=== PATIENT | female | born 1950 | race Caucasian/White ===

== ENCOUNTER 2018-05-16 05:35 | Inpatient (IN) ==
[2018-05-16] MEDS ORDERED: 0.9 % Sodium Chloride 1,000 ML IVC ONE (06:24)
[2018-05-16] MEDS ORDERED: Ondansetron 4 MG/2 ML VIAL IVP ONE (06:24)
--- NOTE | 2018-05-16 06:29 | Emergency Department Note ---
Disposition Clinical Impression: Choledocholithiasis, Elevated liver enzymes Disposition: Admitted As Inpatient Condition: Good Referrals: NONE,PCP [Non-Partnered Physician] - Forms: ED Satisfaction Letter, Work/School Release Time of Disposition: 11:45 Abdominal Pain HPI - General Chief Complaint: ED Abdominal Pain Stated Complaint: abd pain/NVD Time Seen by Provider: 05/16/18 05:57 Source: patient Mode of arrival: private vehicle Limitations: no limitations Nursing Notes Reviewed: Yes Vital Signs Reviewed: Yes - History of Present Illness HPI Narrative: Neda is a pleasant 67-year-old female with a past medical history of type 1 diabetes. She presents the emergency room with a chief complaint of abdominal pain on and off for the past several months. She notes in the last 4 days that she has had increased vomiting. Patient states that she is also having diarrhea but this is normal for her. Gallbladder was removed in January 2016 Patient states that she is also having abdominal pain starting in the right upper quadrant with radiation across to the left upper quadrant. She states that the vomitus looks like bile. She denies blood or coffee grounds in the vomit or diarrhea. Patient states that her temperature was 100.1 at triage but denies having fevers other than this. She denies chest pain or rash note that she has has slight shortness of breath with movement. She is unsure if anything makes the vomiting or abdominal pain better or worse but states that at rest she feels better. No problems with sugar changes recently no problems with injection site problems. She is otherwise healthy. is at bedside and also provides information into history of patient's illness. Pt Subjective Complaint: abdominal pain Onset (ago): week(s) Consistency: intermittent Location: RUQ Pain Severity: moderate Pain Scale: 5 Quality: aching Radiation: LUQ - Related Data Home Medications Medication Instructions Recorded Confirmed Aspirin Enteric Coated [Aspirin EC] 81 mg PO QPM 02/19/15 02/19/15 Atorvastatin [Lipitor] 60 mg PO QPM 02/19/15 02/19/15 HYDROcodone/Acet 5/325 mg [[place] 1 tab PO Q8H PRN 02/19/15 02/19/15 5-325 mg] Insulin LISPRO [HumaLOG] 0 units SQ AD 02/19/15 02/19/15 Levothyroxine [Synthroid] 75 mcg PO QAM 02/19/15 02/19/15 Lisinopril-HCTZ 20-12.5 [Prinzide 1 each PO QAM 02/19/15 02/19/15 20-12.5] Loratadine [Claritin] 10 mg PO DAILY PRN 02/19/15 02/19/15 Oxybutynin Chloride [Ditropan Xl] 10 mg PO QAM 02/19/15 02/19/15 Pantoprazole Sodium [Protonix] 40 mg PO QAM 02/19/15 02/19/15 Sertraline [Zoloft] 100 mg PO QAM 02/19/15 02/19/15 Previous Rx's Medication Instructions Recorded OxyCODONE/APAP 5/325 [Percocet 1 each PO Q4HR PRN #36 tablet 02/23/15 5/325 MG] Allergies Allergy/AdvReac Type Severity Reaction Status Date / Time hydromorphone [From Dilaudid] AdvReac See Verified 05/16/18 06:23 Comments All systems ED: reviewed and negative except as stated. Review of Systems: As Per HPI Abdominal Pain PMH - Past Medical History Medical history: Reports: diabetes, GERD, hyperlipidemia, thyroid disease Female Surgical History: Reports: no surgical history Psychiatric history: Reports: no psych history - Social History Smoking status: Never smoker Alcohol use: Reports: none Drug use: Reports: none Physical Exam - General Limitations: no limitations General appearance: alert, in no apparent distress - Eye Eye exam: Present: normal appearance - ENT ENT exam: normal exam, normal oropharynx - Neck Neck exam: Present: normal inspection - Respiratory Respiratory exam: Present: normal lung sounds bilaterally. Absent: respiratory distress, wheezes - Cardiovascular Cardiovascular exam: Present: regular rate, normal rhythm - Abdominal Exam Abdominal exam: Present: tenderness - Extremities Exam Extremities exam: Present: normal inspection - Expanded Lower Extremity Exam Hip/Pelvis exam: Present: normal inspection Course Course Narrative: Urine was not automatically sent for culture due to potential contamination however patient did have positive nitrates and denies recent Pyridium her Azo use. Culture ordered. Vital Signs Temperature 100.1 F H 05/16/18 05:38 Pulse Rate 92 05/16/18 05:38 Respiratory Rate 16 05/16/18 05:38 Blood Pressure 137/77 05/16/18 05:38 O2 Sat by Pulse Oximetry 96 05/16/18 05:38 Temperature 98.5 F 05/16/18 07:44 Pulse Rate 69 05/16/18 07:44 Respiratory Rate 16 05/16/18 07:44 Blood Pressure 126/51 05/16/18 07:44 O2 Sat by Pulse Oximetry 95 05/16/18 07:44 Oxygen Delivery Oxygen Delivery Room Air Abdominal Pain - MDM Narrative Medical decision making narrative: 5 mm retained stone on CT scan. consulted. He requested that he will do an ERCP tomorrow in the afternoon. Specifically's requested no MRCP. She will be kept nothing by mouth after midnight. - Lab Data Result diagrams: 05/16/18 06:42 05/16/18 06:42 Lab Results 05/16/18 05/16/18 05/16/18 Range/Units 06:42 06:42 06:44 WBC 10.9 (4.3-11.1) K/mcL RBC 4.05 (3.82-4.97) M/mcL Hgb 12.0 (11.5-15.4) g/dL Hct 35.7 (35.3-44.9) % MCV 88.1 (83.0-100.0) fL MCH 29.6 (28.0-33.3) pg MCHC 33.6 (31.6-35.5) g/dL RDW 14.2 (11.5-14.5) % Plt Count 212 (140-400) K/mcL MPV 10.3 (9.4-12.4) fL Immature Gran % 0.4 (0-4) % Seg Neutrophils % 87.1 % Lymphocytes % 4.5 % Monocytes % 7.6 % Eosinophils % 0.1 % Basophils % 0.3 % Neutrophils # 9.5 H (1.6-8.9) K/mcL Lymphocytes # 0.5 L (0.6-4.6) K/mcL Monocytes # 0.8 (0.0-1.3) K/mcL Eosinophils # 0.0 (0.0-0.6) K/mcL Basophils # 0.0 (0.0-0.2) K/mcL Sodium 136 (136-145) mEq/L Potassium 3.6 (3.5-5.1) mEq/L Chloride 101 (98-107) mEq/L Carbon Dioxide 26 (23-29) mEq/L BUN 9 (8-23) mg/dL Creatinine 0.65 (0.60-1.20) mg/dL Est GFR ( Amer) > 60 (> 60) Est GFR (Non-Af Amer) > 60 (> 60) BUN/Creatinine Ratio 14 (6-26) Glucose 183 H (70-105) mg/dL Calculated Osmolality 285 (280-300) Calcium 8.8 (8.6-10.3) mg/dL Total Bilirubin 4.8 H (0.3-1.0) mg/dL Direct Bilirubin 3.0 H (0.0-0.2) mg/dL Indirect Bilirubin 1.8 H (0.0-1.2) mg/dL AST 159 H (13-39) Units/L ALT 191 H (7-52) Units/L Alkaline Phosphatase 546 H (34-104) Units/L Serum Total Protein 6.4 (6.4-8.9) g/dL Albumin 3.6 (3.5-5.7) g/dL Globulin 2.8 (2.4-3.5) g/dL Albumin/Globulin Ratio 1.3 (1.1-2.2) Lipase 4 L (11-82) Units/L Urine Color [place] A (Yellow) Urine Clarity Clear (Clear) Urine pH 5.5 (5.0-8.0) pH Units Ur Specific [place] 1.025 (1.010-1.025) Urine Protein 30 H (Neg-Trace) mg/dL Urine Glucose (UA) 250 H (Normal) mg/dL Urine Ketones 80 H (Negative) mg/dL Urine Blood Negative (Negative) Urine Nitrite Positive A (Negative) Urine Bilirubin Large H (Negative) Urine Urobilinogen 2.0 H (Normal) mg/dL Ur Leukocyte Esterase Small H (Negative) Urine Microscopic RBC 0-3 (0-3) per hpf Urine Microscopic WBC 3-5 H (0-3) per hpf Ur Squamous Epith Cells Many H (None-Few) per lpf Urine Bacteria None Seen (None-Few) per hpf Hyaline Casts None Seen (None-Few) per lpf Ur Culture Indicated? NO. A (NO)
[2018-05-16 07:16] LABS: Bilirubin,Urine Large (Negative); Blood,Urine Negative (Negative); Clarity,Urine Clear (Clear); Color,Urine Orange (Yellow); Glucose,Urine (UA) 250 mg/dL (Normal); Ketones,Urine 80 mg/dL (Negative); Leukocyte Esterase,Urine Small (Negative); Nitrite,Urine Positive (Negative); PH,Urine 5.5 pH Units (5.0-8.0); Protein,Urine 30 mg/dL (Neg-Trace); Specific Gravity,Urine 1.025 (1.010-1.025)
[2018-05-16 07:19] LABS: Basophils % 0.3 %; Eosinophils % 0.1 %; Hematocrit 35.7 % (35.3-44.9); Immature Granulocytes % 0.4 % (0-4); Lymphocytes # 0.5 K/mcL (0.6-4.6); Lymphocytes % 4.5 %; Mean Corpuscular HGB Conc 33.6 g/dL (31.6-35.5); Mean Corpuscular Hemoglobin 29.6 pg (28.0-33.3); Mean Corpuscular Volume 88.1 fL (83.0-100.0); Mean Platelet Volume 10.3 fL (9.4-12.4); Monocytes # 0.8 K/mcL (0.0-1.3); Monocytes % 7.6 %; Neutrophils # 9.5 K/mcL (1.6-8.9); Platelet Count 212 K/mcL (140-400); Red Blood Count 4.05 M/mcL (3.82-4.97); Red Cell Distribution Width 14.2 % (11.5-14.5); Segmented Neutrophils % 87.1 %
[2018-05-16 07:19] LABS: Bacteria,Urine None Seen per hpf (None-Few); Hyaline Casts,Urine None Seen per lpf (None-Few); Squamous Epithelial Cell,Urine Many per lpf (None-Few)
[2018-05-16 07:34] LABS: RBC,Urine 0-3 per hpf (0-3)
[2018-05-16 07:39] LABS: Alanine Aminotransferase 191 Units/L (7-52); Albumin 3.6 g/dL (3.5-5.7); Albumin/Globulin Ratio 1.3 (1.1-2.2); Alkaline Phosphatase 546 Units/L (34-104); Aspartate Amino Transferase 159 Units/L (13-39); BUN/Creatinine Ratio 14 (6-26); Bilirubin,Indirect 1.8 mg/dL (0.0-1.2); Bilirubin,Total 4.8 mg/dL (0.3-1.0); Blood Urea Nitrogen 9 mg/dL (8-23); Calcium 8.8 mg/dL (8.6-10.3); Carbon Dioxide 26 mEq/L (23-29); Chloride 101 mEq/L (98-107); Globulin 2.8 g/dL (2.4-3.5); Glucose 183 mg/dL (70-105); Lipase 4 Units/L (11-82); Osmolality,Calculated 285 (280-300); Potassium 3.6 mEq/L (3.5-5.1); Sodium 136 mEq/L (136-145); Total Protein 6.4 g/dL (6.4-8.9); eGFR For Non-African Americans > 60 (> 60)
[2018-05-16 09:35] LABS: Magnesium 1.8 mg/dL (1.6-2.6)
[2018-05-16] MEDS ORDERED: Isovue-370 500 ML BOTTLE IVP ONE (10:10)
[2018-05-16 11:17] LABS: Hepatitis B Surface Antigen Nonreactive (Nonreactive)
--- NOTE | 2018-05-16 11:34 | Emergency Department Note ---
Disposition Clinical Impression: Choledocholithiasis, Elevated liver enzymes Disposition: Admitted As Inpatient Condition: Good General Adult HPI - General Chief complaint: ED Abdominal Pain Stated complaint: abd pain/NVD Time Seen by Provider: 05/16/18 05:57 Source: patient Mode of arrival: private vehicle Limitations: no limitations - History of Present Illness Pain Scale: 0 - Related Data Home Medications Medication Instructions Recorded Confirmed RX: Aspirin Enteric Coated 81 mg PO QPM 02/19/15 02/19/15 [Aspirin EC] RX: Atorvastatin [Lipitor] 60 mg PO QPM 02/19/15 02/19/15 RX: HYDROcodone/Acet 5/325 mg 1 tab PO Q8H PRN 02/19/15 02/19/15 [[place] 5-325 mg] RX: Insulin LISPRO [HumaLOG] 0 units SQ AD 02/19/15 02/19/15 RX: Levothyroxine [Synthroid] 75 mcg PO QAM 02/19/15 02/19/15 RX: Lisinopril-HCTZ 20-12.5 1 each PO QAM 02/19/15 02/19/15 [Prinzide 20-12.5] RX: Loratadine [Claritin] 10 mg PO DAILY PRN 02/19/15 02/19/15 RX: Oxybutynin Chloride [Ditropan 10 mg PO QAM 02/19/15 02/19/15 Xl] RX: Pantoprazole Sodium [Protonix] 40 mg PO QAM 02/19/15 02/19/15 RX: Sertraline [Zoloft] 100 mg PO QAM 02/19/15 02/19/15 Previous Rx's Medication Instructions Recorded RX: OxyCODONE/APAP 5/325 [Percocet 1 each PO Q4HR PRN #36 tablet 02/23/15 5/325 MG] Allergies Allergy/AdvReac Type Severity Reaction Status Date / Time hydromorphone [From Dilaudid] AdvReac See Verified 05/16/18 06:23 Comments Past Medical History - Past Medical History Medical history: Reports: diabetes, GERD, hyperlipidemia, thyroid disease Psychiatric history: Reports: no psych history - Social History Smoking Status: Never smoker Smokeless Tobacco Status: No Alcohol use: Reports: none Drug use: Reports: none Physical Exam - General Limitations: no limitations General appearance: alert, in no apparent distress Course Vital Signs Temperature 100.1 F H 05/16/18 05:38 Pulse Rate 92 05/16/18 05:38 Respiratory Rate 16 05/16/18 05:38 Blood Pressure 137/77 05/16/18 05:38 O2 Sat by Pulse Oximetry 96 05/16/18 05:38 Temperature 98.3 F 05/16/18 12:58 Pulse Rate 76 05/16/18 12:58 Respiratory Rate 16 05/16/18 12:58 Blood Pressure 124/70 05/16/18 12:58 O2 Sat by Pulse Oximetry 94 05/16/18 12:58 Oxygen Delivery Oxygen Delivery Room Air Medical Decision Making - Lab Data Result diagrams: 05/16/18 06:42 05/16/18 06:42 Lab Results 05/16/18 05/16/18 05/16/18 Range/Units 06:42 06:42 06:44 WBC 10.9 (4.3-11.1) K/mcL RBC 4.05 (3.82-4.97) M/mcL Hgb 12.0 (11.5-15.4) g/dL Hct 35.7 (35.3-44.9) % MCV 88.1 (83.0-100.0) fL MCH 29.6 (28.0-33.3) pg MCHC 33.6 (31.6-35.5) g/dL RDW 14.2 (11.5-14.5) % Plt Count 212 (140-400) K/mcL MPV 10.3 (9.4-12.4) fL Immature Gran % 0.4 (0-4) % Seg Neutrophils % 87.1 % Lymphocytes % 4.5 % Monocytes % 7.6 % Eosinophils % 0.1 % Basophils % 0.3 % Neutrophils # 9.5 H (1.6-8.9) K/mcL Lymphocytes # 0.5 L (0.6-4.6) K/mcL Monocytes # 0.8 (0.0-1.3) K/mcL Eosinophils # 0.0 (0.0-0.6) K/mcL Basophils # 0.0 (0.0-0.2) K/mcL Sodium 136 (136-145) mEq/L Potassium 3.6 (3.5-5.1) mEq/L Chloride 101 (98-107) mEq/L Carbon Dioxide 26 (23-29) mEq/L BUN 9 (8-23) mg/dL Creatinine 0.65 (0.60-1.20) mg/dL Est GFR ( Amer) > 60 (> 60) Est GFR (Non-Af Amer) > 60 (> 60) BUN/Creatinine Ratio 14 (6-26) Glucose 183 H (70-105) mg/dL Calculated Osmolality 285 (280-300) Calcium 8.8 (8.6-10.3) mg/dL Magnesium 1.8 (1.6-2.6) mg/dL Total Bilirubin 4.8 H (0.3-1.0) mg/dL Direct Bilirubin 3.0 H (0.0-0.2) mg/dL Indirect Bilirubin 1.8 H (0.0-1.2) mg/dL AST 159 H (13-39) Units/L ALT 191 H (7-52) Units/L Alkaline Phosphatase 546 H (34-104) Units/L Serum Total Protein 6.4 (6.4-8.9) g/dL Albumin 3.6 (3.5-5.7) g/dL Globulin 2.8 (2.4-3.5) g/dL Albumin/Globulin Ratio 1.3 (1.1-2.2) Lipase 4 L (11-82) Units/L Urine Color [place] A (Yellow) Urine Clarity Clear (Clear) Urine pH 5.5 (5.0-8.0) pH Units Ur Specific [place] 1.025 (1.010-1.025) Urine Protein 30 H (Neg-Trace) mg/dL Urine Glucose (UA) 250 H (Normal) mg/dL Urine Ketones 80 H (Negative) mg/dL Urine Blood Negative (Negative) Urine Nitrite Positive A (Negative) Urine Bilirubin Large H (Negative) Urine Urobilinogen 2.0 H (Normal) mg/dL Ur Leukocyte Esterase Small H (Negative) Urine Microscopic RBC 0-3 (0-3) per hpf Urine Microscopic WBC 3-5 H (0-3) per hpf Ur Squamous Epith Cells Many H (None-Few) per lpf Urine Bacteria None Seen (None-Few) per hpf Hyaline Casts None Seen (None-Few) per lpf Ur Culture Indicated? NO. A (NO) Hepatitis A IgM Ab (Nonreactive) Hep Bs Antigen (Nonreactive) Hep B Core IgM Ab (Nonreactive) Hepatitis C Ab Screen (Nonreactive) 05/16/18 Range/Units 07:15 WBC (4.3-11.1) K/mcL RBC (3.82-4.97) M/mcL Hgb (11.5-15.4) g/dL Hct (35.3-44.9) % MCV (83.0-100.0) fL MCH (28.0-33.3) pg MCHC (31.6-35.5) g/dL RDW (11.5-14.5) % Plt Count (140-400) K/mcL MPV (9.4-12.4) fL Immature Gran % (0-4) % Seg Neutrophils % % Lymphocytes % % Monocytes % % Eosinophils % % Basophils % % Neutrophils # (1.6-8.9) K/mcL Lymphocytes # (0.6-4.6) K/mcL Monocytes # (0.0-1.3) K/mcL Eosinophils # (0.0-0.6) K/mcL Basophils # (0.0-0.2) K/mcL Sodium (136-145) mEq/L Potassium (3.5-5.1) mEq/L Chloride (98-107) mEq/L Carbon Dioxide (23-29) mEq/L BUN (8-23) mg/dL Creatinine (0.60-1.20) mg/dL Est GFR ( Amer) (> 60) Est GFR (Non-Af Amer) (> 60) BUN/Creatinine Ratio (6-26) Glucose (70-105) mg/dL Calculated Osmolality (280-300) Calcium (8.6-10.3) mg/dL Magnesium (1.6-2.6) mg/dL Total Bilirubin (0.3-1.0) mg/dL Direct Bilirubin (0.0-0.2) mg/dL Indirect Bilirubin (0.0-1.2) mg/dL AST (13-39) Units/L ALT (7-52) Units/L Alkaline Phosphatase (34-104) Units/L Serum Total Protein (6.4-8.9) g/dL Albumin (3.5-5.7) g/dL Globulin (2.4-3.5) g/dL Albumin/Globulin Ratio (1.1-2.2) Lipase (11-82) Units/L Urine Color (Yellow) Urine Clarity (Clear) Urine pH (5.0-8.0) pH Units Ur Specific [place] (1.010-1.025) Urine Protein (Neg-Trace) mg/dL Urine Glucose (UA) (Normal) mg/dL Urine Ketones (Negative) mg/dL Urine Blood (Negative) Urine Nitrite (Negative) Urine Bilirubin (Negative) Urine Urobilinogen (Normal) mg/dL Ur Leukocyte Esterase (Negative) Urine Microscopic RBC (0-3) per hpf Urine Microscopic WBC (0-3) per hpf Ur Squamous Epith Cells (None-Few) per lpf Urine Bacteria (None-Few) per hpf Hyaline Casts (None-Few) per lpf Ur Culture Indicated? (NO) Hepatitis A IgM Ab Nonreactive (Nonreactive) Hep Bs Antigen Nonreactive (Nonreactive) Hep B Core IgM Ab Nonreactive (Nonreactive) Hepatitis C Ab Screen Nonreactive (Nonreactive) Attestation Statement - Attestation Attestation: For this encounter, I have reviewed the [employer] MANAGER or PA documentation, treatment plan, and medical decision making; and I have had face to face time with this patient. Patient to the ED with a chief complaint of abdominal pain and bilious vomiting. Onset yesterday. Patient states she does not the car 5 times between in [facility]. History of a cholecystectomy in [address] Frye. On exam she is in no distress. Feeling better on my evaluation. She has had an upper normal tenderness. Plan. Patient had elevated LFTs, alkaline phosphatase, bilirubin. We did do a CT abdomen pelvis shows extrahepatic biliary ductal dilatation. She has a 5 mm retained stone in the common bile duct. I discussed the patient with GI television producer who will see the patient tomorrow for an ERCP. Request the patient nothing by mouth at midnight and NO MRCP be performed. Patient admitted to hospitalist.
[2018-05-16] MEDS ORDERED: *HR* Promethazine 25 MG/ML VIAL IVP PRN (11:42)
[2018-05-16] MEDS ORDERED: Naloxone 0.4 MG/ML INJ IVP PRN (11:42)
[2018-05-16] MEDS ORDERED: *HR* OxyCODONE Immed Rel 5 MG TABLET PO PRN (11:42)
[2018-05-16] MEDS ORDERED: Acetaminophen 325 MG TABLET PO PRN (11:42)
[2018-05-16] MEDS ORDERED: Ondansetron 4 MG/2 ML VIAL IVP PRN (11:42)
[2018-05-16 11:47] LABS: Hepatitis A Antibody IgM Nonreactive (Nonreactive); Hepatitis B Core IgM Nonreactive (Nonreactive); Hepatitis C Virus Antibody Nonreactive (Nonreactive)
[2018-05-16] MEDS: 0.9 % Sodium Chloride 1,000 ML IVC SCH (14:20)
--- NOTE | 2018-05-16 15:04 | Internal Med History&Physical ---
Date of Encounter: 05/16/18 Time of Encounter: 15:03 Internal Medicine - H&P: HPI Chief complaint: Abd pain Admitted From: Emergency Dept Plans for Post Hospital Care: Home History of present illness: Ms. Martinez is a 67 year old female patient with history of type 1 diabetes, hypothyroidism, hypertension, hyperlipidemia who presented to the ER with complaints of acute abdominal pain mainly in the right upper quadrant. She has been having these symptoms for a couple of months but over the past week it has been getting worse and she had severe pain last night. As such she decided to come to the ER. She is been having intractable episodes of nausea and vomiting intermittently over the past couple of months. She reports a 15 pound weight loss during this period. She had fever earlier today with temperature of 100.1. She has noticed dark-colored urine. Her pain improved after she received Zofran in the ER. Past Med Surg Social Fam HX - Past Medical History Attestation: Yes The following information was validated with the patient. Source: patient Medical history: diabetes, GERD, hyperlipidemia, thyroid disease Psychiatric history: no psych history - Past Surgical History Additional surgical history: Tonsilectomy - Social History Smoking Status: Never smoker Smokeless Tobacco Status: No Alcohol use: none Drug use: none - Family History Father Living Status: Hx Family Cardiac Disorders: No Hx Family Respiratory Disorders: No Hx Family Cancer: Yes Hx Family GI Disorders: No Hx Family Endocrine Disorder: Yes Hx Family Neuromuscular Disorders: No Hx Family Neurologic Disorders: No Hx Family HEENT Disorders: No Hx Family Autoimmune Disorders: No Internal Medicine - H&P: Meds Aspirin Enteric Coated [Aspirin EC] 81 mg PO QPM 02/19/15 [History] Atorvastatin [Lipitor] 60 mg PO QPM 02/19/15 [History] HYDROcodone/Acet 5/325 mg [[place] 5-325 mg] 1 tab PO Q8H PRN 02/19/15 [History] Insulin LISPRO [HumaLOG] 0 units SQ AD 02/19/15 [History] Levothyroxine [Synthroid] 75 mcg PO QAM 02/19/15 [History] Lisinopril-HCTZ 20-12.5 [Prinzide 20-12.5] 1 each PO QAM 02/19/15 [History] Loratadine [Claritin] 10 mg PO DAILY PRN 02/19/15 [History] Oxybutynin Chloride [Ditropan Xl] 10 mg PO QAM 02/19/15 [History] Pantoprazole Sodium [Protonix] 40 mg PO QAM 02/19/15 [History] Sertraline [Zoloft] 100 mg PO QAM 02/19/15 [History] OxyCODONE/APAP 5/325 [Percocet 5/325 MG] 1 each PO Q4HR PRN #36 tablet 02/23/15 [Rx] Allergy/AdvReac Type Severity Reaction Status Date / Time hydromorphone [From Dilaudid] AdvReac See Verified 05/16/18 06:23 Comments All Systems PM: A 10-system review of systems was performed and is negative for pertinent findings except as documented above in the HPI. - Constitutional Constitutional: no chills, no fever(s), no night sweats - EENT Eyes: no change in vision, no discharge, no pain, no photophobia Ears: no ear discharge, no ear pain, no tinnitus Nose, mouth and throat: no dysphagia, no nasal discharge, no neck pain, no sore throat - Cardiovascular Cardiovascular ROS IM: no chest pain, no diaphoresis, no dyspnea, no lightheadedness, no palpitations, no syncope - Respiratory Respiratory: no cough, no dyspnea, no wheezing, no excessive phlegm production - Gastrointestinal Gastrointestinal: abdominal pain, nausea, vomiting - Genitourinary Genitourinary: no change in urinary stream, no dysuria, no flank pain, no hematuria - Musculoskeletal Musculoskeletal ROS IM: no numbness, no tingling - Integumentary Integumentary IM: jaundice, no rash, no unusual bruising - Neurological Neurological ROS: no confusion, no convulsions, no focal weakness, no numbness, no tingling, no tremor(s) - Hematologic/Lymphatic Hematologic/Lymphatic: no easy bruising - Constitutional Vitals: Temp Pulse Resp BP Pulse Ox 98.3 F 76 16 124/70 94 05/16/18 12:58 05/16/18 12:58 05/16/18 12:58 05/16/18 12:58 05/16/18 12:58 General appearance: Present: cooperative, A&O X 3, pleasant, answers questions appropriately Exam: General: Patient is alert, no acute distress, oriented x 3 Head: atraumatic, normocephalic, ENT: Mucous membranes moist Eye: normal appearance, PERRL, scleral icterus, no conjunctival injection Neck: normal inspection, trachea midline, full ROM, no carotid bruits Chest: normal inspection, symmetric chest rise Respiratory: Good respiratory effort. Normal breath sounds. No wheezing or crackles. Cardiovascular: Regular rate and rhythm. s1 and s2 normal No clicks, rubs, gallops, or murmurs. No pedal edema Abdomen: Abdomen is soft, mild tenderness in right upper quadrant. Bowel sounds are present Musculoskeletal: Spontaneously moving all extremities Skin: warm, dry, intact. Jaundice Neuro: Alert oriented x 3 normal cranial nerves, no focal deficits Psych: Patient's affect is normal Internal Med - H&P Results - Labs CBC & Chem 7: 05/16/18 06:42 05/16/18 06:42 Labs: Short CBC 05/16/18 Range/Units 06:42 WBC 10.9 (4.3-11.1) K/mcL Hgb 12.0 (11.5-15.4) g/dL Hct 35.7 (35.3-44.9) % Plt Count 212 (140-400) K/mcL Neutrophils # 9.5 H (1.6-8.9) K/mcL BMP 05/16/18 06:42 Sodium 136 Potassium 3.6 Chloride 101 Carbon Dioxide 26 BUN 9 Creatinine 0.65 Glucose 183 H Calcium 8.8 Liver Function 05/16/18 Range/Units 06:42 Total Bilirubin 4.8 H (0.3-1.0) mg/dL Direct Bilirubin 3.0 H (0.0-0.2) mg/dL AST 159 H (13-39) Units/L ALT 191 H (7-52) Units/L Alkaline Phosphatase 546 H (34-104) Units/L Albumin 3.6 (3.5-5.7) g/dL Urine 05/16/18 Range/Units 06:44 Urine Color [place] A (Yellow) Urine Clarity Clear (Clear) Urine pH 5.5 (5.0-8.0) pH Units Ur Specific [place] 1.025 (1.010-1.025) Urine Protein 30 H (Neg-Trace) mg/dL Urine Glucose (UA) 250 H (Normal) mg/dL - Impressions ITS Impressions Chest X-Ray 05/16/18 08:55 IMPRESSION: 1. Findings suggesting bronchitis/bronchiolitis. 2. No lobar pneumonia. D/ / 05/16/2018 11:27:10 Severiano Yarbrough MD / Pat Madden Interpreting Provider: Severiano Yarbrough MD Abdomen/Pelvis CT 05/16/18 10:10 IMPRESSION: Choledocholithiasis with resultant intrahepatic and extrahepatic biliary ductal dilatation. Trace right pleural effusion and basilar atelectasis. Fibroid uterus. D/ / Raul Wilkins MD / Raul Wilkins MD Interpreting Provider: Raul Wilkins MD - Assessment and Plan (1) Obstructive jaundice Current Visit: Yes Status: Acute Assessment and plan: Patient with symptoms of obstructive jaundice. Bilirubin 4.8. 5 mm calculus noted in CBD. Keep nothing by mouth after midnight. Plan for ERCP tomorrow. Gastroenterology consulted. High risk for complications. If patient continues to have fevers, we will start her on antibiotics. (2) Choledocholithiasis Current Visit: Yes Status: Acute Assessment and plan: Management as above. Keep nothing by mouth after midnight. Plan for ERCP tomorrow (3) Elevated liver enzymes Current Visit: Yes Status: Acute Assessment and plan: Due to obstructive jaundice. Monitor renal function. Check PT/INR. (4) Diabetes mellitus Current Visit: Yes Status: Acute Assessment and plan: Monitor blood sugars. Patient uses an insulin pump. We will continue basal insulin. Low correctional sliding scale. Diabetic diet when patient is able to eat Qualifiers: Diabetes mellitus type: type 1 Diabetes mellitus complication status: with hyperglycemia Qualified Code(s): E10.65 - Type 1 diabetes mellitus with hyperglycemia (5) Essential hypertension Current Visit: Yes Status: Acute Assessment and plan: Continue Prinzide once confirmed. Monitor blood pressure. (6) Hyperlipidemia Current Visit: Yes Status: Acute Assessment and plan: Will resume Lipitor once confirmed Qualifiers: Hyperlipidemia type: mixed hyperlipidemia Qualified Code(s): E78.2 - Mixed hyperlipidemia (7) DVT prophylaxis Current Visit: Yes Status: Acute Assessment and plan: With subcutaneous heparin - Time Spent With Patient Total time spent is greater than 50% in coordination of care (as documented) at patient's floor/unit and/or counseling patient:
[2018-05-16] MEDS ORDERED: *HR* Dextrose 50 % in Water (Syg) 50 ML SYRINGE IVP PRN (15:06)
[2018-05-16] MEDS ORDERED: D5% in Water 1,000 ML IVC PRN (15:06)
[2018-05-16] MEDS ORDERED: Dextrose Gel 15 GM/37.5 ML TUBE PO PRN ×2 (15:06)
[2018-05-16] MEDS: Insulin LISPRO 300 UNITS/3 ML VIAL SQ SCH ×2 (17:05→21:13)
[2018-05-16] MEDS: *HR* Heparin 5,000 UNIT/ML VIAL SQ SCH (17:20)
[2018-05-17] MEDS: 0.9 % Sodium Chloride 1,000 ML IVC SCH (00:10)
[2018-05-17 04:50] LABS: Hematocrit 31.5 % (35.3-44.9); Hemoglobin 10.5 g/dL (11.5-15.4); Mean Corpuscular HGB Conc 33.3 g/dL (31.6-35.5); Mean Corpuscular Hemoglobin 29.7 pg (28.0-33.3); Mean Corpuscular Volume 89.2 fL (83.0-100.0); Mean Platelet Volume 9.9 fL (9.4-12.4); Platelet Count 161 K/mcL (140-400); Red Blood Count 3.53 M/mcL (3.82-4.97); Red Cell Distribution Width 14.5 % (11.5-14.5)
[2018-05-17 04:57] LABS: INR 1.1; Prothrombin Time 12.8 Seconds (9.4-12.1)
[2018-05-17 05:12] LABS: Alanine Aminotransferase 128 Units/L (7-52); Albumin 2.9 g/dL (3.5-5.7); Albumin/Globulin Ratio 1.2 (1.1-2.2); Alkaline Phosphatase 409 Units/L (34-104); Aspartate Amino Transferase 95 Units/L (13-39); BUN/Creatinine Ratio 14 (6-26); Bilirubin,Direct 1.3 mg/dL (0.0-0.2); Bilirubin,Total 2.3 mg/dL (0.3-1.0); Blood Urea Nitrogen 8 mg/dL (8-23); Calcium 7.9 mg/dL (8.6-10.3); Carbon Dioxide 25 mEq/L (23-29); Chloride 108 mEq/L (98-107); Globulin 2.4 g/dL (2.4-3.5); Glucose 56 mg/dL (70-105); Magnesium 1.9 mg/dL (1.6-2.6); Osmolality,Calculated 286 (280-300); Potassium 3.4 mEq/L (3.5-5.1); Sodium 140 mEq/L (136-145); Total Protein 5.3 g/dL (6.4-8.9); eGFR For Non-African Americans > 60 (> 60)
[2018-05-17] MEDS: *HR* Heparin 5,000 UNIT/ML VIAL SQ SCH ×2 (05:12→17:34)
[2018-05-17] MEDS ORDERED: *HR* Propofol 200 MG/20 ML VIAL IVP ONE (06:10)
[2018-05-17] MEDS ORDERED: *HR* FentaNYL (PF) 100 MCG/2 ML VIAL ONE (06:10)
[2018-05-17] MEDS ORDERED: *HR* Midazolam HCl 2 MG/2 ML VIAL ONE (06:10)
[2018-05-17] MEDS ORDERED: Lidocaine -MPF 2% 2 ML VIAL ONE (06:11)
[2018-05-17] MEDS ORDERED: *HR* Succinylcholine 200 MG/10 ML VIAL IVP ONE (06:11)
[2018-05-17] MEDS ORDERED: *HR* Atropine Sulfate 8 MG/20 ML VIAL IVP ONE (06:11)
[2018-05-17] MEDS ORDERED: Lidocaine -MPF 4% 5 ML AMPUL ONE (06:11)
[2018-05-17] MEDS ORDERED: Ondansetron 4 MG/2 ML VIAL ONE (06:11)
--- NOTE | 2018-05-17 09:10 | Internal Med Progress Note ---
<Ino Blas - Last Filed: 05/17/18 12:11> Hospitalist Progress Note - Encounter Date of Encounter: 05/17/18 Time of Encounter: 09:30 - Exam Vitals: Temp Pulse Resp BP Pulse Ox 98.0 F 77 15 127/48 96 05/17/18 10:33 05/17/18 10:33 05/17/18 10:33 05/17/18 10:33 05/17/18 10:33 - Assessment and Plan (1) Obstructive jaundice Current Visit: Yes Status: Acute (2) Choledocholithiasis Current Visit: Yes Status: Acute (3) Elevated liver enzymes Current Visit: Yes Status: Acute (4) Diabetes mellitus Current Visit: Yes Status: Acute (5) Essential hypertension Current Visit: Yes Status: Acute (6) Hyperlipidemia Current Visit: Yes Status: Acute (7) DVT prophylaxis Current Visit: Yes Status: Acute - Time Spent with Patient Total time spent is greater than 50% in coordination of care (as documented) at patient's floor/unit and/or counseling patient: Internal Medicine: Result - Labs CBC & Chem 7: 05/17/18 04:21 05/17/18 04:21 Labs: Short CBC 05/17/18 Range/Units 04:21 WBC 4.2 L D (4.3-11.1) K/mcL Hgb 10.5 L D (11.5-15.4) g/dL Hct 31.5 L (35.3-44.9) % Plt Count 161 (140-400) K/mcL BMP 05/17/18 04:21 Sodium 140 Potassium 3.4 L Chloride 108 H Carbon Dioxide 25 BUN 8 Creatinine 0.56 L Glucose 56 L Calcium 7.9 L Liver Function 05/17/18 Range/Units 04:21 Total Bilirubin 2.3 H (0.3-1.0) mg/dL Direct Bilirubin 1.3 H (0.0-0.2) mg/dL AST 95 H (13-39) Units/L ALT 128 H (7-52) Units/L Alkaline Phosphatase 409 H (34-104) Units/L Albumin 2.9 L (3.5-5.7) g/dL - ABG Interpretation ABG results: PT/INR, D-dimer PT 12.8 Seconds (9.4-12.1) H 05/17/18 04:21 - Impressions Impressions Chest X-Ray 05/16/18 08:55 IMPRESSION: 1. Findings suggesting bronchitis/bronchiolitis. 2. No lobar pneumonia. D/ / 05/16/2018 11:27:10 Severiano Yarbrough MD / Pat Madden Interpreting Provider: Severiano Yarbrough MD Abdomen MRI 05/17/18 08:14 IMPRESSION: 1. Mild to moderate intra and extrahepatic biliary dilatation secondary to an 8 mm distal common bile duct stone as seen on the CT dated 05/16/2018. 2. Cholecystectomy. 3. Ventral hernia containing fat. D/ / 05/17/2018 09:52:02 Gin Mcgee MD / rebecca Interpreting Provider: Gin Mcgee MD Consult Discharge Plan - Plan Referrals: Massimo Underwood MD [Primary Care Provider] - - Attending Attestation I saw evaluated and examined this patient and my medical decision-making was reviewed with the Resident Physician, Filipe Lu. I agree with the documented findings, disposition and treatment plan as described except to any changes set forth below. We independently had [id number] contact with the patient. Patient hospitalized with choledocholithiasis. She feels much better today. Remains nothing by mouth. She did have abdominal pain last night but it has since improved. MRCP that showed 8 mm stone in the common bile duct. Bilirubin trending down. General: Patient is alert, no acute distress, oriented x 3 Respiratory: Good respiratory effort. Normal breath sounds. No wheezing or crackles. Cardiovascular: Regular rate and rhythm. s1 and s2 normal No clicks, rubs, gallops, or murmurs. No pedal edema Abdomen: Abdomen is soft, nontender. Bowel sounds are present Musculoskeletal: Spontaneously moving all extremities Skin: warm, dry, intact. jaundice present Obstructive Jaundice: Bilirubin trending down. Due to choledocholithiasis. Keep nothing by mouth. Plan for ERCP today. Choledocholithiasis: ERCP today. Essential hypertension. Blood pressure is well controlled. Diabetes mellitus type 1: Patient on insulin pump. Blood sugars are well controlled. DVT prophylaxis with subcutaneous heparin <Filipe Lu - Last Filed: 05/17/18 14:50> Hospitalist Progress Note - Encounter Date of Encounter: 05/17/18 - Subjective Interval History: Patient was seen after having MRCP. She denies abdominal pain, nausea, vomiting, diarrhea. - Exam Vitals: Temp Pulse Resp BP Pulse Ox 98.4 F 68 16 120/59 95 05/17/18 08:30 05/17/18 08:30 05/17/18 08:30 05/17/18 08:30 05/17/18 08:30 Exam: General: pleasant, without distress Cardiovascualr: Regular rate and rhythm with no murmur, absent gallops or rubs, absent pedal edema, radial pulses 2 out of 4 Lungs: Clear to auscultation bilaterally, not in respiratory distress Abdomen: Soft nontender, nondistended positive bowel sounds, Skin: warm and dry, absent rash, absent open wounds and nodules. Jaundice MSK: absent clubbing, cyanosis, joints without swelling Neuro: Cranial nerves II through XII intact, UE and LE sensation equal bilaterally, UE and LEstrength 5/5, alert oriented 3 Psych: good insight and judgment - Assessment and Plan (1) Obstructive jaundice Current Visit: Yes Status: Acute Assessment and Plan: Patient presented with obstructive jaundice, bilirubin of 4.8 and a 5 mm calculus in the common bile duct. She underwent MRCP in the morning which showed mild to moderate intra-and extrahepatic biliary dilation with a 8 mm bile duct stone She will undergo ERCP today Patient has had improvement in her total bilirubin form 4.8-2.3. (2) Choledocholithiasis Current Visit: Yes Status: Acute Assessment and Plan: Plan as above (3) Diabetes mellitus Current Visit: Yes Status: Acute Assessment and Plan: Patient's blood glucoses at goal She is currently nothing by mouth for ERCP We will continue diabetic diet after procedure and sliding scale insulin. (4) DVT prophylaxis Current Visit: Yes Status: Acute Assessment and Plan: Heparin subcutaneous (5) Hyperlipidemia Current Visit: Yes Status: Chronic Assessment and Plan: Continue home medication. (6) Hypothyroid Current Visit: Yes Status: Chronic Assessment and Plan: Continue levothyroxin (7) Essential hypertension Current Visit: Yes Status: Chronic Assessment and Plan: Continue lisinopril hydrochlorothiazide - Time Spent with Patient Total time spent is greater than 50% in coordination of care (as documented) at patient's floor/unit and/or counseling patient: Internal Medicine: Result - Labs CBC & Chem 7: 05/17/18 04:21 05/17/18 04:21 Labs: Short CBC 05/17/18 Range/Units 04:21 WBC 4.2 L D (4.3-11.1) K/mcL Hgb 10.5 L D (11.5-15.4) g/dL Hct 31.5 L (35.3-44.9) % Plt Count 161 (140-400) K/mcL BMP 05/16/18 05/17/18 06:42 04:21 Sodium 136 140 Potassium 3.6 3.4 L Chloride 101 108 H Carbon Dioxide 26 25 BUN 9 8 Creatinine 0.65 0.56 L Glucose 183 H 56 L Calcium 8.8 7.9 L Liver Function 05/16/18 05/17/18 Range/Units 06:42 04:21 Total Bilirubin 4.8 H 2.3 H (0.3-1.0) mg/dL Direct Bilirubin 3.0 H 1.3 H (0.0-0.2) mg/dL AST 159 H 95 H (13-39) Units/L ALT 191 H 128 H (7-52) Units/L Alkaline Phosphatase 546 H 409 H (34-104) Units/L Albumin 3.6 2.9 L (3.5-5.7) g/dL - ABG Interpretation ABG results: PT/INR, D-dimer PT 12.8 Seconds (9.4-12.1) H 05/17/18 04:21 - Impressions Impressions Chest X-Ray 05/16/18 08:55 IMPRESSION: 1. Findings suggesting bronchitis/bronchiolitis. 2. No lobar pneumonia. D/ / 05/16/2018 11:27:10 Severiano Yarbrough MD / Pat Madden Interpreting Provider: Severiano Yarbrough MD Abdomen/Pelvis CT 05/16/18 10:10 IMPRESSION: Choledocholithiasis with resultant intrahepatic and extrahepatic biliary ductal dilatation. Trace right pleural effusion and basilar atelectasis. Fibroid uterus. D/ / Raul Wilkins MD / Raul Wilkins MD Interpreting Provider: Raul Wilkins MD <Ino Blas - Last Filed: 05/17/18 12:11> (4) Diabetes mellitus Qualifiers: Diabetes mellitus type: type 1 Diabetes mellitus complication status: with hyperglycemia Qualified Code(s): E10.65 - Type 1 diabetes mellitus with hyperglycemia (6) Hyperlipidemia Qualifiers: Hyperlipidemia type: mixed hyperlipidemia Qualified Code(s): E78.2 - Mixed hyperlipidemia <Filipe Lu - Last Filed: 05/17/18 14:50> (3) Diabetes mellitus Qualifiers: Diabetes mellitus type: type 1 Diabetes mellitus complication status: with hyperglycemia Qualified Code(s): E10.65 - Type 1 diabetes mellitus with hyperglycemia (5) Hyperlipidemia Qualifiers: Hyperlipidemia type: mixed hyperlipidemia Qualified Code(s): E78.2 - Mixed hyperlipidemia (6) Hypothyroid Qualifiers: Hypothyroidism type: unspecified Qualified Code(s): E03.9 - Hypothyroidism, unspecified
[2018-05-17] MEDS: Insulin LISPRO 300 UNITS/3 ML VIAL SQ SCH ×4 (12:53→22:57)
--- NOTE | 2018-05-17 13:37 | Anesthesia Evaluation PreOp ---
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 HX Other Medical History: Diabetes Type II, Thyroid (hypo), GERD, Other (common bile duct stone) Anesthesia History: No Prior Anesthetic Complications, Past Anesthesia : No Alcohol Use: none Drug use: none Medications and Allergies Aspirin Enteric Coated [Aspirin EC] 81 mg PO QPM 02/19/15 [History] Atorvastatin [Lipitor] 60 mg PO QPM 02/19/15 [History] HYDROcodone/Acet 5/325 mg [[place] 5-325 mg] 1 tab PO Q8H PRN 02/19/15 [History] Insulin LISPRO [HumaLOG] 0 units SQ AD 02/19/15 [History] Levothyroxine [Synthroid] 75 mcg PO QAM 02/19/15 [History] Lisinopril-HCTZ 20-12.5 [Prinzide 20-12.5] 1 each PO QAM 02/19/15 [History] Loratadine [Claritin] 10 mg PO DAILY PRN 02/19/15 [History] Oxybutynin Chloride [Ditropan Xl] 10 mg PO QAM 02/19/15 [History] Pantoprazole Sodium [Protonix] 40 mg PO QAM 02/19/15 [History] Sertraline [Zoloft] 100 mg PO QAM 02/19/15 [History] OxyCODONE/APAP 5/325 [Percocet 5/325 MG] 1 each PO Q4HR PRN #36 tablet 02/23/15 [Rx] Allergy/AdvReac Type Severity Reaction Status Date / Time hydromorphone [From Dilaudid] AdvReac See Verified 05/16/18 06:23 Comments - Meds/Allergy Pre-op Review Medications Reviewed: Yes Allergies Reviewed: Yes Beta Blockers on Current Med List: No Anesthesia Results - Labs 05/17/18 04:21 05/17/18 04:21 - Imaging EKG: report reviewed Additional studies: abdominal MRI 2018 IMPRESSION: 1. Mild to moderate intra and extrahepatic biliary dilatation secondary to an 8 mm distal common bile duct stone as seen on the CT dated 05/16/2018. 2. Cholecystectomy. 3. Ventral hernia containing fat. stress test 2018 Findings: Normal sinus rhythm at rest. No baseline arrhythmias were noted. Stress ECG is negative for ischemia. No arrhythmias noted during exercise or recovery. The patient demonstrated a normal blood pressure response. The exercise capacity was average. No chest pain during stress procedure. [facility] 2015 Impressions: Mild atherosclerotic coronary artery disease. 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
[2018-05-17] MEDS ORDERED: Dexamethasone 4 MG/ML VIAL ONE (13:45)
[2018-05-17] MEDS ORDERED: Indomethacin 50 MG SUPP.RECT RC ONE (14:15)
[2018-05-17] MEDS ORDERED: Potassium Chloride Elixir 20 MEQ/15 ML UDC PO ONE (14:42)
--- NOTE | 2018-05-17 15:31 | Anesthesia Evaluation Post Op ---
Date of Encounter: 05/17/18 Time of Encounter: 15:25 - Discharge PostOp Status: Transfer Patient to floor (Patient's vital signs have been reviewed. Patient is stable postoperatively and has adequately recovered from anesthesia. Patient is determined to have stable airway patency and respiratory function including respiratory rate and oxygen saturation. Patient has a stable heart rate, blood pressure and adequate hydration. Patients mental status is acceptable. Patients temperature is appropriate. Pain and nausea are adequately controlled.)
[2018-05-18] MEDS: *HR* Heparin 5,000 UNIT/ML VIAL SQ SCH (06:42)
[2018-05-18 07:55] LABS: Potassium 4.3 mEq/L (3.5-5.1)
[2018-05-18 07:56] LABS: Alanine Aminotransferase 103 Units/L (7-52); Albumin/Globulin Ratio 1.2 (1.1-2.2); Alkaline Phosphatase 389 Units/L (34-104); Aspartate Amino Transferase 61 Units/L (13-39); BUN/Creatinine Ratio 25 (6-26); Bilirubin,Direct 0.6 mg/dL (0.0-0.2); Bilirubin,Indirect 0.8 mg/dL (0.0-1.2); Bilirubin,Total 1.4 mg/dL (0.3-1.0); Blood Urea Nitrogen 18 mg/dL (8-23); Calcium 8.4 mg/dL (8.6-10.3); Carbon Dioxide 22 mEq/L (23-29); Chloride 106 mEq/L (98-107); Globulin 2.5 g/dL (2.4-3.5); Glucose 212 mg/dL (70-105); Osmolality,Calculated 288 (280-300); Sodium 135 mEq/L (136-145); Total Protein 5.5 g/dL (6.4-8.9); eGFR For Non-African Americans > 60 (> 60)
[2018-05-18] MEDS ORDERED: Lisinopril-HCTZ 20-12.5mg TABLET PO SCH (09:00)
[2018-05-18 10:57] VITALS: BP 127/67
--- NOTE | 2018-05-18 11:11 | Discharge Summary ---
<Ino Blas - Last Filed: 05/18/18 12:47> Date of Encounter: 05/18/18 Time of Encounter: 09:20 - Discharge Diagnosis (1) Obstructive jaundice Status: Acute (2) Choledocholithiasis Status: Acute (3) Elevated liver enzymes Status: Acute (4) Diabetes mellitus Status: Acute Qualifiers: Diabetes mellitus type: type 1 Diabetes mellitus complication status: with hyperglycemia Qualified Code(s): E10.65 - Type 1 diabetes mellitus with hyperglycemia (5) Essential hypertension Status: Chronic (6) Hyperlipidemia Status: Chronic Qualifiers: Hyperlipidemia type: mixed hyperlipidemia Qualified Code(s): E78.2 - Mixed hyperlipidemia (7) DVT prophylaxis Status: Acute Hospital course: Ms. Martinez is a 67 year old female - Time Spent with Patient Total time spent providing and/or coordinating discharge services: - Discharge Medications Prescriptions: Continue RX: Insulin LISPRO [HumaLOG] 0 units SQ TID RX: Atorvastatin [Lipitor] 40 mg PO QPM RX: Sertraline [Zoloft] 100 mg PO QAM RX: Oxybutynin Chloride [Ditropan Xl] 10 mg PO QAM RX: Lisinopril-HCTZ 20-12.5 [Prinzide 20-12.5] 1 each PO QAM RX: Levothyroxine [Synthroid] 88 mcg PO QAM Home Medications: RX: Atorvastatin [Lipitor] 40 mg PO QPM 02/19/15 [History] RX: Insulin LISPRO [HumaLOG] 0 units SQ TID 02/19/15 [History] RX: Lisinopril-HCTZ 20-12.5 [Prinzide 20-12.5] 1 each PO QAM 02/19/15 [History] RX: Oxybutynin Chloride [Ditropan Xl] 10 mg PO QAM 02/19/15 [History] RX: Sertraline [Zoloft] 100 mg PO QAM 02/19/15 [History] RX: Levothyroxine [Synthroid] 88 mcg PO QAM 05/17/18 [History] Allergies/Adverse Reactions: Allergy/AdvReac Type Severity Reaction Status Date / Time hydromorphone [From Dilaudid] AdvReac See Verified 05/16/18 06:23 Comments Date of admission: 05/16/18 11:50 Primary care physician: Massimo Underwood MD Consults: 05/16/18 11:32 Consult to Gastroenterology [CONS] Stat Consulting Provider: [facility] [place] Reason for Consult: choledocholithiasis Time Notified: 11:32 Call Completed: Yes 05/16/18 14:18 Consult to Nutrition [CONS] Routine Comment: Patient states 17 pounds lost in last 3-4 weeks Consulting Provider: NUTRITION Reason for Dietary Consult: MST Score - Constitutional Vitals: Temp Pulse Resp BP Pulse Ox 98.0 F 71 16 127/67 96 05/18/18 10:55 05/18/18 10:55 05/18/18 10:55 05/18/18 10:55 05/18/18 10:55 - Patient Status Disposition: Home, Self-Care Condition: Good - Ambulatory Orders Ambulatory Orders: XR KUB [XR] Time Frame: 2 Weeks, Facility: [facility], Location: Radiology - Discharge Instructions Follow Up With: Margareth Liriano MD [Partnered Physician] - 06/03/18 (Follow up ERCP hospital for choledocholithiasis. GI wanted follow up in two weeks. ) Massimo Underwood MD [Primary Care Provider] - (in 1-2weeks) Additional Instructions: Follow-up appointments: If there is not an appointment listed below, please call your physician and schedule a follow-up appointment. If you have congestive heart failure and your symptoms return, make an appointment with your physician. Medication List: Carry an up to date list of medications you are taking at all time. We have given you an updated medication list including any new medications that you have been prescribed. Please provide that list to your primary provider Symptoms: If your condition changes or you experience any of the following symptoms, notify your physician immediately: Unusual or worsening pain, fever, persistent nausea and vomiting, bleeding, increase in swelling (especially in your legs), sudden weight gain, extreme dizziness, chest pain, increased drainage or redness from a wound or incision. Go to the emergency department if you experience a problem with breathing. Weights: If you have a history of swelling or shortness of breath, weigh yourself daily and notify your physician if you have a weight gain of two or more pounds in one day or 5 or more pounds in a week. If you experience any of the warning signs for stroke: Sudden numbness or weakness of the face, arm or leg; especially on one side of the body, sudden confusion, trouble speaking or understanding, sudden trouble seeing in one or both eyes, sudden trouble walking, dizziness, loss of balance or coordination, sudden sever headache with no cause; Call 911 or go to the emergency room. Stroke is a medical emergency. Some risk factors for stroke: Age, cigarette smoking, diabetes, excessive alcohol consumption, family history, high blood pressure, overweight, physical inactivity, prior stroke, heart attack, diagnosis of carotid artery stenosis or other artery disease. If you smoke, STOP: Smoking or tobacco use significantly increases your risk of heart and lung disease. Your chance of disease greatly increases if you continue to smoke. For more information, call the [employer] quit line for smoking cessation 0-QUIT-NOW ( ) - Attending Attestation I saw evaluated and examined this patient and my medical decision-making was reviewed with the Resident Physician, Filipe Lu. I agree with the documented findings, disposition and treatment plan as described except to any changes set forth below. We independently had [id number] contact with the patient. 67-year-old female patient with prior cholecystectomy was hospitalized here with choledocholithiasis and obstructive jaundice. She was evaluated by GI and kept nothing by mouth for ERCP. Patient underwent this procedure yesterday and has since then been doing better. She is clinically stable to be discharged home at this time. She will follow up with her primary care provider for further management. She did have a pancreatic duct stent placed which will need to be followed with a repeat x-ray to make sure it has passed down. On exam, patient is awake and alert. Abdomen is soft, nontender. S1 and S2 are normal. Breath sounds are normal. <Filipe Lu - Last Filed: 05/18/18 13:38> - NOTES TO OUTPATIENT PROVIDER Notes to Outpatient Provider: admitted for abd pain 2nd to choledocholithiasis and underwent ERCP with biliary spinchterotomy and balloon extraction and temporary pancreatic stent placement without complications. Will have repeat KUB in 2 weeks for assesment of PD stend and follow up with GI. Orders not resulted at time of discharge: Pending orders 05/18/18 06:17 Basic Metabolic Panel AM 0400 Hepatic Panel AM 0400 Lipase Routine Date of Encounter: 05/18/18 Time of Encounter: 11:12 - Discharge Diagnosis (1) Choledocholithiasis Priority: Primary Status: Acute (2) Obstructive jaundice Priority: Secondary Status: Acute (3) Diabetes mellitus Priority: Secondary Status: Acute Qualifiers: Diabetes mellitus type: type 1 Diabetes mellitus complication status: with hyperglycemia Qualified Code(s): E10.65 - Type 1 diabetes mellitus with hyperglycemia (4) DVT prophylaxis Priority: Secondary Status: Acute (5) Hyperlipidemia Priority: Secondary Status: Chronic Qualifiers: Hyperlipidemia type: mixed hyperlipidemia Qualified Code(s): E78.2 - Mixed hyperlipidemia (6) Hypothyroid Priority: Secondary Status: Chronic Qualifiers: Hypothyroidism type: unspecified Qualified Code(s): E03.9 - Hypothyroidism, unspecified (7) Essential hypertension Priority: Secondary Status: Chronic Hospital course: Ms. Martinez is a 67 year old female presented with abd pain in the RUQ. She has had this pain for a few months but it progressed to severe in nature the night before admission. She also had N/V and 15 pound weight loss. She was found to have obstructive jaundince 2nd to choledocholithiais with bilirubin of 4.8. Ct abdomen pelvis showed 5mm stone in CBD. GI was consulted and patient underwent MRCP which showed 8mm distal CBD stone. Patient underwent ERCP with biliary spinchterotomy and balloon stone extraction and temp pancreatic stent placement. She did not have any complications from procedure. TOday she is tolerating her diet. Her billirbin has improved to 1.4. Lipase this morning was 25. Patient will be discharged with KUB in two weeks and GI follow up. Discharge discussed with: patient, family - Time Spent with Patient Total time spent providing and/or coordinating discharge services: Date of admission: 05/16/18 11:50 Primary care physician: Massimo Underwood MD Consults: 05/16/18 11:32 Consult to Gastroenterology [CONS] Stat Consulting Provider: Dipika Montenegro Reason for Consult: choledocholithiasis Time Notified: 11:32 Call Completed: Yes 05/16/18 14:18 Consult to Nutrition [CONS] Routine Comment: Patient states 17 pounds lost in last 3-4 weeks Consulting Provider: NUTRITION Reason for Dietary Consult: MST Score Discharging clinician: Filipe Lu Anticipated date of discharge: 05/18/18 - Constitutional Vitals: Temp Pulse Resp BP Pulse Ox 98.0 F 71 16 127/67 96 05/18/18 10:55 05/18/18 10:55 05/18/18 10:55 05/18/18 10:55 05/18/18 10:55 General appearance: Present: cooperative, A&O X 3, pleasant, answers questions appropriately Exam: General: pleasant, without distress Cardiovascualr: Regular rate and rhythm with no murmur, absent gallops or rubs, absent pedal edema, radial pulses 2 out of 4 Lungs: Clear to auscultation bilaterally, not in respiratory distress Abdomen: Soft nontender, nondistended positive bowel sounds, Skin: warm and dry, absent rash, absent open wounds and nodules. Jaundice MSK: absent clubbing, cyanosis, joints without swelling Neuro: Cranial nerves II through XII intact, UE and LE sensation equal bilaterally, UE and LEstrength 5/5, alert oriented 3 Psych: good insight and judgment - Patient Status Functional capacity at discharge: independent ambulation Overall status at discharge: patient is progressing back to baseline - Diet and Activity Activity: increase activity as tolerated Diet: advance to your usual diet
[2018-05-18] MEDS: Insulin LISPRO 300 UNITS/3 ML VIAL SQ SCH (11:31)
[2018-05-18 12:26] LABS: Lipase 25 Units/L (11-82)
== END 2018-05-18 13:12 | disposition home or self-care (01) | DRG 446 ==
LOC: EMEROOARM 05:35 → 3ANU 05:35 → SUATTDRO 11:50 → 3ANU 12:38
PROVIDERS: ADMIT Internal Medicine; ATTEND Internal Medicine

== ENCOUNTER 2021-06-13 04:24 | Inpatient (IN) ==
[2021-06-13] MEDS ORDERED: Naloxone 0.4 MG/ML INJ IVP PRN (07:33)
[2021-06-13] MEDS ORDERED: *HR* Heparin 5,000 UNIT/ML VIAL IVP ONE (07:35)
[2021-06-13] MEDS ORDERED: *HR* Heparin 5,000 UNIT/ML VIAL IVP PRN ×2 (07:35)
[2021-06-13] MEDS ORDERED: Dextrose 4 GM Chewable Tablets PO PRN ×2 (07:35)
[2021-06-13] MEDS ORDERED: D5% in Water 1,000 ML IVC PRN (07:35)
[2021-06-13] MEDS ORDERED: *HR* Dextrose 50 % in Water (Syg) 50 ML SYRINGE IVP PRN (07:35)
[2021-06-13] MEDS ORDERED: Heparin 25,000UNIT/250ML 1/2NS 25,000 UNIT/250 ML IV.SOLN IVC SCH (07:45)
[2021-06-13] MEDS: Aspirin 81 MG TAB.CHEW PO SCH (08:15)
[2021-06-13] MEDS: Insulin LISPRO 300 UNITS/3 ML VIAL SUBQ SCH ×3 (08:24→17:29)
[2021-06-13 08:25] LABS: Basophils % 0.2 %; Hematocrit 31.2 % (35.3-44.9); Hemoglobin 10.5 g/dL (11.5-15.4); Immature Granulocytes % 0.8 % (0-4); Lymphocytes # 1.3 K/mcL (0.6-4.6); Lymphocytes % 8.6 %; Mean Corpuscular HGB Conc 33.7 g/dL (31.6-35.5); Mean Corpuscular Hemoglobin 30.1 pg (28.0-33.3); Mean Corpuscular Volume 89.4 fL (83.0-100.0); Mean Platelet Volume 9.4 fL (9.4-12.4); Monocytes # 1.2 K/mcL (0.0-1.3); Neutrophils # 12.5 K/mcL (1.6-8.9); Platelet Count 213 K/mcL (140-400); Red Blood Count 3.49 M/mcL (3.82-4.97); Segmented Neutrophils % 82.4 %; White Blood Count 15.2 K/mcL (4.3-11.1)
[2021-06-13 08:36] LABS: INR 1.2; Prothrombin Time 13.9 Seconds (9.4-12.1)
[2021-06-13 08:40] LABS: Heparin anti-factor XA UFH 1.12 IU/mL (0.30-0.70)
[2021-06-13 08:49] LABS: Estimated Average Glucose 169 mg/dl; Hemoglobin A1C 7.5 %
[2021-06-13 09:22] LABS: Alanine Aminotransferase 15 Units/L (7-52); Albumin 3.5 g/dL (3.5-5.7); Albumin/Globulin Ratio 1.8 (1.1-2.2); Alkaline Phosphatase 46 Units/L (34-104); Aspartate Amino Transferase 18 Units/L (13-39); BUN/Creatinine Ratio 16 (6-26); Bilirubin,Total 0.9 mg/dL (0.3-1.0); Blood Urea Nitrogen 14 mg/dL (8-23); Calcium 8.1 mg/dL (8.6-10.3); Carbon Dioxide 18 mEq/L (23-29); Chloride 108 mEq/L (98-107); Chol/HDL Ratio 2.9 (0-4.9); Cholesterol 111 mg/dL (< 200); Glucose 233 mg/dL (70-105); HDL Cholesterol 38 mg/dL (40-59); LDL Cholesterol,Calculated 68 mg/dL (< 100); Magnesium 2.1 mg/dL (1.6-2.6); Osmolality,Calculated 290 (280-300); Phosphorous 2.1 mg/dL (2.7-4.5); Potassium 3.7 mEq/L (3.5-5.1); Sodium 136 mEq/L (136-145); Total Protein 5.5 g/dL (6.4-8.9); Triglycerides 23 mg/dL (< 150); Troponin I 0.18 ng/mL (< 0.04); eGFR For African Americans > 60 (> 60); eGFR For Non-African Americans > 60 (> 60)
[2021-06-13] MEDS: 0.9 % Sodium Chloride 1,000 ML IVC SCH ×2 (09:50→21:29)
[2021-06-13 12:39] LABS: Bilirubin,Urine Negative (Negative); Blood,Urine Negative (Negative); Clarity,Urine Clear (Clear); Color,Urine Light-Yellow (Yellow); Glucose,Urine (UA) >=1000 mg/dL (Normal); Ketones,Urine 150 mg/dL (Negative); Leukocyte Esterase,Urine Large (Negative); Mucus,Urine Few per lpf (None-Few); Nitrite,Urine Negative (Negative); Protein,Urine 30 mg/dL (Neg-Trace); Specific Gravity,Urine > 1.030 (1.010-1.025); Squamous Epithelial Cell,Urine Few per hpf (None-Few); Urobilinogen,Urine Normal (Normal); WBC,Urine 50-100 per hpf (0-3)
[2021-06-13] MEDS: Insulin DETEMIR 100 UNIT/ML X5UNITS SUBQ SCH (13:19)
[2021-06-13] MEDS ORDERED: Perflutren Lipid Microsphere 1.3 ML in 0.9 % Sodium Chloride 8.7 ML IVP PRN (13:24)
[2021-06-13] MEDS ORDERED: *HR* LORazepam 2 MG/ML VIAL IVP ONE (22:33)
[2021-06-14] MEDS: Insulin LISPRO 300 UNITS/3 ML VIAL SUBQ SCH ×3 (02:32→11:14)
[2021-06-14 03:23] LABS: Basophils % 0.5 %; Eosinophils # 0.1 K/mcL (0.0-0.6); Eosinophils % 1.2 %; Hematocrit 27.8 % (35.3-44.9); Hemoglobin 9.4 g/dL (11.5-15.4); Immature Granulocytes % 0.3 % (0-4); Lymphocytes # 1.8 K/mcL (0.6-4.6); Lymphocytes % 24.1 %; Mean Corpuscular HGB Conc 33.8 g/dL (31.6-35.5); Mean Corpuscular Hemoglobin 30.4 pg (28.0-33.3); Mean Platelet Volume 9.4 fL (9.4-12.4); Monocytes # 0.6 K/mcL (0.0-1.3); Monocytes % 7.9 %; Platelet Count 185 K/mcL (140-400); Red Blood Count 3.09 M/mcL (3.82-4.97); Red Cell Distribution Width 13.4 % (11.5-14.5); White Blood Count 7.5 K/mcL (4.3-11.1)
[2021-06-14 03:45] LABS: BUN/Creatinine Ratio 13 (6-26); Blood Urea Nitrogen 10 mg/dL (8-23); Calcium 7.7 mg/dL (8.6-10.3); Carbon Dioxide 18 mEq/L (23-29); Chloride 107 mEq/L (98-107); Glucose 232 mg/dL (70-105); Magnesium 1.9 mg/dL (1.6-2.6); Osmolality,Calculated 288 (280-300); Phosphorous 2.4 mg/dL (2.7-4.5); Potassium 4.1 mEq/L (3.5-5.1); Sodium 136 mEq/L (136-145); eGFR For African Americans > 60 (> 60); eGFR For Non-African Americans > 60 (> 60)
[2021-06-14] MEDS ORDERED: Lisinopril-HCTZ 20-12.5mg TABLET PO SCH (09:00)
[2021-06-14] MEDS: Insulin DETEMIR 100 UNIT/ML X5UNITS SUBQ SCH (09:25)
[2021-06-14] MEDS: Aspirin 81 MG TAB.CHEW PO SCH (09:25)
[2021-06-14] MEDS ORDERED: cefTRIAXone 1,000 MG in 0.9 % Sodium Chloride 10 ML IVP SCH (10:00)
[2021-06-14 10:49] VITALS: TEMP 98
[2021-06-14] MEDS ORDERED: *HR* Heparin 10,000 UNIT/10 ML VIAL ONE (13:17)
[2021-06-14] MEDS ORDERED: 0.9 % Sodium Chloride 2,000 ML ONE (13:17)
[2021-06-14] MEDS ORDERED: ISOVUE-370 200 ML INFUS..BTL ONE (13:17)
[2021-06-14] MEDS ORDERED: Heparin 1,000 UNITS/500 mL 500 ML ONE (13:17)
[2021-06-14] MEDS ORDERED: Nitroglycerin 1,000 MCG/5 ML VIAL IV ONE (13:17)
[2021-06-14] MEDS ORDERED: *HR* Midazolam HCl 2 MG/2 ML VIAL ONE (13:50)
[2021-06-14] MEDS ORDERED: *HR* FentaNYL (PF) 100 MCG/2 ML VIAL ONE (13:50)
[2021-06-14 15:40] VITALS: BP 108/66; PULSE 71; O2SAT 96
== END 2021-06-14 17:16 | disposition home or self-care (01) | DRG 282 ==
LOC: 3BNU → SUATTDRO 06:04
PROVIDERS: ADMIT Internal Medicine; ATTEND Internal Medicine